=== PATIENT | male | born 1980 | race Caucasian/White ===

== ENCOUNTER 2020-03-01 18:15 | Emergency (ER) | payer MEDICAID ==
[~2020-03-01] VITALS: Ht 182.9 cm; Wt 80.5 kg
[2020-03-01 19:41] LABS: BASOPHILS % (AUTO) 0.6 % (0-1); EOSINOPHILS # (AUTO) 0.2 X10'3 (0-0.9); HEMATOCRIT 40.5 % (42.0-52.0); HEMOGLOBIN 13.2 g/dl (14.0-17.9); LYMPHOCYTES # (AUTO) 2.5 X10'3 (1.1-4.8); LYMPHOCYTES % (AUTO) 31.9 % (21-51); MEAN CORPUSCULAR HGB CONC 32.7 g/dL (33.0-36.5); MEAN CORPUSCULAR VOLUME 79.6 FL (78-98); MEAN PLATELET VOLUME 7.7 FL (7.4-10.4); MONOCYTES # (AUTO) 0.4 X10'3 (0-0.9); MONOCYTES % (AUTO) 4.9 % (2-12); NEUTROPHILS # (AUTO) 4.7 X10'3 (1.8-7.7); NEUTROPHILS % (AUTO) 60.6 % (42-75); PLATELET COUNT 285 X10'3 (140-440); RED BLOOD COUNT 5.09 X10'6 (4.70-6.10); RED CELL DISTRIBUTION WIDTH 13.3 % (11.5-14.5); WHITE BLOOD COUNT 7.8 X10'3 (4.5-11.0)
[2020-03-01 19:45] LABS: CLARITY,URINE CLEAR (Clear); COLOR,URINE YELLOW (Yellow); GLUCOSE, URINE 100 mg/dl (Neg); KETONES,URINE NEGATIVE (Neg); LEUKOCYTE ESTERASE ,URINE NEGATIVE (Neg); NITRITES, URINE NEGATIVE (Neg); OCCULT BLOOD,URINE NEGATIVE (Neg); PH,URINE 6.5 (4.8-8.0); PROTEIN,URINE TRACE mg/dl (Neg)
[2020-03-01 19:50] LABS: UA COLLECTION TYPE NON-SPECIFIED
[2020-03-01 19:52] LABS: BACTERIA,URINE NONE SEEN /HPF (Neg); COARSE GRANULAR CAST 0-3 /LPF (NEGATIVE); RBC,URINE 0-2 /HPF (0-2); SQUAMOUS EPITHELIAL CELL,UR FEW /LPF (FEW); WBC,URINE NONE SEEN /HPF (0-4)
[2020-03-01 19:54] LABS: ALANINE AMINOTRANSFERASE 77 U/L (12-78); ALBUMIN 3.2 G/DL (3.4-5.0); ALBUMIN/GLOBULIN RATIO 0.8 (1.1-1.5); ALKALINE PHOSPHATASE 87 IU/L (46-116); AMYLASE 54 U/L (25-115); ANION GAP 13 (8-16); ASPARTATE AMINO TRANSFERASE 54 U/L (10-37); BILIRUBIN,TOTAL 1.5 MG/DL (0.1-1.0); BLOOD UREA NITROGEN 17 MG/DL (7-18); BUN/CREATININE RATIO 13.6 (5.4-32.0); CALCIUM 8.2 MG/DL (8.5-10.1); CHLORIDE 102 MMOL/L (99-107); CREATININE 1.25 MG/DL (0.60-1.10); GLUCOSE 231 MG/DL (70-104); LIPASE 137 U/L (73-393); POTASSIUM 3.8 MMOL/L (3.5-5.1); SODIUM 139 MMOL/L (135-145); TOTAL CARBON DIOXIDE 24.5 MMOL/L (24-32); TOTAL PROTEIN 7.3 G/DL (6.4-8.2); eGFR 65 ML/MIN
[2020-03-01] MEDS ORDERED: ondansetron/PF 4mg/2ml inj IV ONE (20:10)
[2020-03-01] MEDS ORDERED: normal saline 1000ML IV soln IVB ONE ×2 (20:10→20:20)
[2020-03-01] MEDS ORDERED: ketorolac tromethamine 15mg/ml inj. IV ONE (20:20)
[2020-03-01] MEDS ORDERED: proCHLORperazine 10 MG/2 ml inj IV ONE (21:15)
[2020-03-01] MEDS ORDERED: morphine 4 MG/ML inj SYRINge IV PRN (21:15)
--- NOTE | 2020-03-01 22:10 | NUR ---
Pt given water per Dr Lyles's okay.
--- NOTE | 2020-03-01 22:28 | NUR ---
Pt tolerating oral fluids.
[2020-03-01] MEDS ORDERED: ONDA4TAB6 PO (22:42)
[2020-03-01 22:53] VITALS: BP 105/74
== END 2020-03-01 22:56 | disposition home or self-care (01) ==
LOC: ER 18:16
DX: R10.12 Left upper quadrant pain (principal); R11.2 Nausea with vomiting, unspecified; E11.9 Type 2 diabetes mellitus without complications; F17.200 Nicotine dependence, unspecified, uncomplicated; Z72.89 Other problems related to lifestyle; Z79.899 Other long term (current) drug therapy
CPT/HCPCS: 36415; 76700; 80053; 81001; 82150; 82948; 83690; 85025; 85610; 96361; 96374; 96375; 99285; J0780; J1885; J2270; J2405; J7030

== ENCOUNTER 2020-04-30 13:48 | Emergency (ER) | payer MEDICAID ==
[~2020-04-30] VITALS: Ht 175.3 cm; Wt 85.0 kg
[~2020-04-30 13:48] MED LIST: ONDA4TAB6 PO
[2020-04-30 14:50] LABS: BASOPHILS % (AUTO) 0.5 % (0-1); EOSINOPHILS # (AUTO) 0.1 X10'3 (0-0.9); EOSINOPHILS % (AUTO) 3.9 % (0-6); HEMATOCRIT 32.6 % (42.0-52.0); HEMOGLOBIN 10.5 g/dl (14.0-17.9); LYMPHOCYTES # (AUTO) 1.3 X10'3 (1.1-4.8); LYMPHOCYTES % (AUTO) 39.5 % (21-51); MEAN CORPUSCULAR HGB CONC 32.2 g/dL (33.0-36.5); MEAN CORPUSCULAR VOLUME 80.9 FL (78-98); MEAN PLATELET VOLUME 6.8 FL (7.4-10.4); MONOCYTES # (AUTO) 0.5 X10'3 (0-0.9); MONOCYTES % (AUTO) 14.3 % (2-12); NEUTROPHILS # (AUTO) 1.4 X10'3 (1.8-7.7); NEUTROPHILS % (AUTO) 41.8 % (42-75); PLATELET COUNT 130 X10'3 (140-440); RED BLOOD COUNT 4.03 X10'6 (4.70-6.10); RED CELL DISTRIBUTION WIDTH 13.7 % (11.5-14.5); WHITE BLOOD COUNT 3.4 X10'3 (4.5-11.0)
--- NOTE | 2020-04-30 14:52 | NUR ---
DR NEWTON IN TO ASSESS PATIENT AT THIS TIME. MADE AWARE BG 63 AFTER GIVEN APPLE JUICE, MD STATES TO GIVE PATIENT SANDWICH.
[2020-04-30 14:56] LABS: CLARITY,URINE CLEAR (Clear); COLOR,URINE YELLOW (Yellow); GLUCOSE, URINE NEGATIVE (Neg); KETONES,URINE NEGATIVE (Neg); LEUKOCYTE ESTERASE ,URINE NEGATIVE (Neg); NITRITES, URINE NEGATIVE (Neg); OCCULT BLOOD,URINE NEGATIVE (Neg); PH,URINE 7.5 (4.8-8.0); PROTEIN,URINE TRACE mg/dl (Neg)
[2020-04-30 14:57] LABS: UA COLLECTION TYPE VOIDED
[2020-04-30 15:06] LABS: ALANINE AMINOTRANSFERASE 73 U/L (12-78); ALBUMIN 2.8 G/DL (3.4-5.0); ALBUMIN/GLOBULIN RATIO 0.7 (1.1-1.5); ALKALINE PHOSPHATASE 109 IU/L (46-116); ANION GAP 7 (8-16); ASPARTATE AMINO TRANSFERASE 96 U/L (10-37); BILIRUBIN,TOTAL 0.2 MG/DL (0.1-1.0); BLOOD UREA NITROGEN 9 MG/DL (7-18); BUN/CREATININE RATIO 8.1 (5.4-32.0); CALCIUM 8.4 MG/DL (8.5-10.1); CHLORIDE 104 MMOL/L (99-107); CREATININE 1.11 MG/DL (0.60-1.10); GLUCOSE 68 MG/DL (70-104); POTASSIUM 4.4 MMOL/L (3.5-5.1); SODIUM 139 MMOL/L (135-145); TOTAL CARBON DIOXIDE 28.5 MMOL/L (24-32); TOTAL PROTEIN 6.9 G/DL (6.4-8.2); eGFR 74 ML/MIN
[2020-04-30 15:09] LABS: ETHANOL < 0.010 GM/DL (0.0-0.010); LIPASE < 50 U/L (73-393)
[2020-04-30 15:14] LABS: BACTERIA,URINE NONE SEEN /HPF (Neg); MUCUS STRANDS NONE SEEN /LPF (Neg); RBC,URINE NONE SEEN /HPF (0-2); SPERM FEW /HPF (NEGATIVE); SQUAMOUS EPITHELIAL CELL,UR NONE SEEN /LPF (FEW); WBC,URINE 0-4 /HPF (0-4)
[2020-04-30 18:35] VITALS: BP 104/73
== END 2020-04-30 18:35 | disposition home or self-care (01) ==
LOC: ER 13:48
DX: E11.649 Type 2 diabetes mellitus with hypoglycemia without coma (principal); F17.200 Nicotine dependence, unspecified, uncomplicated; Z72.89 Other problems related to lifestyle; Z79.899 Other long term (current) drug therapy
CPT/HCPCS: 36415; 80053; 80320; 81001; 82948; 83690; 85025; 93005; 99284

== ENCOUNTER 2021-04-22 20:00 | Emergency (ER) | payer MEDICAID ==
[~2021-04-22] VITALS: Ht 182.9 cm; Wt 81.0 kg
[2021-04-22 22:02] LABS: LYMPHOCYTES # (AUTO) 2.4 X10'3 (1.1-4.8); MEAN PLATELET VOLUME 7.5 FL (7.4-10.4); MONOCYTES # (AUTO) 0.3 X10'3 (0-0.9); RED CELL DISTRIBUTION WIDTH 14.9 % (11.5-14.5)
[2021-04-22 22:04] LABS: BASOPHILS % (AUTO) 0.5 % (0-1); EOSINOPHILS % (AUTO) 0.5 % (0-6); HEMATOCRIT 38.1 % (42.0-52.0); HEMOGLOBIN 12.3 g/dl (14.0-17.9); LYMPHOCYTES % (AUTO) 57.3 % (21-51); MEAN CORPUSCULAR HEMOGLOBIN 26.8 PG (27.0-31.0); MEAN CORPUSCULAR HGB CONC 32.3 g/dL (33.0-36.5); MONOCYTES % (AUTO) 7.5 % (2-12); NEUTROPHILS # (AUTO) 1.4 X10'3 (1.8-7.7); NEUTROPHILS % (AUTO) 34.2 % (42-75); PLATELET COUNT 146 X10'3 (140-440); RED BLOOD COUNT 4.59 X10'6 (4.70-6.10); WHITE BLOOD COUNT 4.2 X10'3 (4.5-11.0)
[2021-04-22 22:13] LABS: ALANINE AMINOTRANSFERASE 111 U/L (12-78); ALBUMIN 2.9 G/DL (3.4-5.0); ALBUMIN/GLOBULIN RATIO 0.6 (1.1-1.5); ALKALINE PHOSPHATASE 265 IU/L (46-116); ANION GAP 7 (8-16); ASPARTATE AMINO TRANSFERASE 154 U/L (10-37); BILIRUBIN,TOTAL 1.3 MG/DL (0.1-1.0); BLOOD UREA NITROGEN 11 MG/DL (7-18); BUN/CREATININE RATIO 8.9 (5.4-32.0); CALCIUM 7.8 MG/DL (8.5-10.1); CHLORIDE 97 MMOL/L (99-107); CREATININE 1.24 MG/DL (0.60-1.10); GLUCOSE 272 MG/DL (70-104); LIPASE < 50 U/L (73-393); POTASSIUM 3.8 MMOL/L (3.5-5.1); SODIUM 135 MMOL/L (135-145); TOTAL CARBON DIOXIDE 31.5 MMOL/L (24-32); TOTAL PROTEIN 7.7 G/DL (6.4-8.2); eGFR 65 ML/MIN
[2021-04-22] MEDS ORDERED: iohexol 300mg/ml 100ml inj. ONE (22:47)
[2021-04-22] MEDS ORDERED: morphine 4 MG/ML inj SYRINge IV ONE (23:10)
--- NOTE | 2021-04-22 23:28 | NUR ---
Patient resting in stretcher, calm and cooperative. Even and unlabored respirations.
[2021-04-23] MEDS ORDERED: LIDOcaine Viscous 15ml cup MM ONE (00:35)
[2021-04-23] MEDS ORDERED: diphenhydrAMINE 25 MG/10 ML UD oral solution PO ONE (00:35)
[2021-04-23] MEDS ORDERED: mag hydrox/Alum hydrox/simeth 30ml oral suspension PO ONE (00:35)
[2021-04-23] MEDS ORDERED: ondansetron/PF 4mg/2ml inj IV ONE (01:05)
--- NOTE | 2021-04-23 01:40 | NUR ---
Patient provided with ice chips for PO challenge
[2021-04-23] MEDS ORDERED: ONDA4TAB12 PO (02:14)
[2021-04-23 02:37] VITALS: BP 132/90
== END 2021-04-23 02:22 | disposition home or self-care (01) ==
LOC: ER 20:01
DX: K29.00 Acute gastritis without bleeding (principal); R74.01 Elevation of levels of liver transaminase levels; R10.13 Epigastric pain; R11.0 Nausea; E11.9 Type 2 diabetes mellitus without complications; Z72.89 Other problems related to lifestyle; Z79.899 Other long term (current) drug therapy
CPT/HCPCS: 36415; 74177; 80053; 83690; 85025; 96374; 96375; 99285; J2270; J2405; Q0163; Q9967

== ENCOUNTER 2021-04-23 03:18 | Emergency (ER) | payer MEDICAID ==
[~2021-04-23] VITALS: Ht 182.9 cm; Wt 81.8 kg
[~2021-04-23 03:18] MED LIST changes: +ONDA4TAB12 PO
[2021-04-23 03:39] VITALS: BP 133/91
[2021-04-23] MEDS ORDERED: diphenhydrAMINE 50 mg/ml inj IM ONE (05:35)
[2021-04-23] MEDS ORDERED: haloperidol lactate 5mg/ml inj IM ONE (05:35)
== END 2021-04-23 07:24 | disposition home or self-care (01) ==
LOC: ER 03:19
DX: K29.70 Gastritis, unspecified, without bleeding (principal); R11.2 Nausea with vomiting, unspecified; R10.13 Epigastric pain; E11.9 Type 2 diabetes mellitus without complications; F17.200 Nicotine dependence, unspecified, uncomplicated; Z72.89 Other problems related to lifestyle; Z79.899 Other long term (current) drug therapy
CPT/HCPCS: 76700; 96372; 99284; J1200; J1630

== ENCOUNTER 2021-04-25 17:42 | Emergency (ER) | payer MEDICAID ==
[~2021-04-25] VITALS: Ht 182.9 cm; Wt 81.8 kg
[2021-04-25] MEDS ORDERED: ondansetron/PF 4mg/2ml inj IV ONE (17:50)
[2021-04-25] MEDS ORDERED: normal saline 1000ML IV soln IVB ONE (17:50)
[2021-04-25 17:53] VITALS: BP 121/89
[2021-04-25] MEDS ORDERED: famotidine/PF 10 mg/ml inj IV ONE (17:55)
[2021-04-25] MEDS ORDERED: proCHLORperazine 10 MG/2 ml inj IV ONE (17:55)
[2021-04-25] MEDS ORDERED: sucralfate 1gm/10ml UD suspension PO STA (18:23)
[2021-04-25] MEDS ORDERED: mag hydrox/Alum hydrox/simeth 30ml oral suspension PO ONE (18:25)
[2021-04-25] MEDS ORDERED: LIDOcaine Viscous 15ml cup MM ONE (18:25)
[2021-04-25 18:30] LABS: PLATELET COUNT 82 X10'3 (140-440)
[2021-04-25 18:32] LABS: HEMATOCRIT 34.3 % (42.0-52.0); HEMOGLOBIN 11.3 g/dl (14.0-17.9); MEAN CORPUSCULAR HEMOGLOBIN 27.3 PG (27.0-31.0); MEAN CORPUSCULAR HGB CONC 33.1 g/dL (33.0-36.5); MEAN CORPUSCULAR VOLUME 82.4 FL (78-98); MEAN PLATELET VOLUME 7.7 FL (7.4-10.4); RED BLOOD COUNT 4.16 X10'6 (4.70-6.10); WHITE BLOOD COUNT 6.7 X10'3 (4.5-11.0)
[2021-04-25 18:33] LABS: ALANINE AMINOTRANSFERASE 116 U/L (12-78); ALBUMIN 2.6 G/DL (3.4-5.0); ALBUMIN/GLOBULIN RATIO 0.6 (1.1-1.5); ALKALINE PHOSPHATASE 278 IU/L (46-116); ANION GAP 9 (8-16); ASPARTATE AMINO TRANSFERASE 132 U/L (10-37); BILIRUBIN,TOTAL 1.3 MG/DL (0.1-1.0); BLOOD UREA NITROGEN 12 MG/DL (7-18); BUN/CREATININE RATIO 12.2 (5.4-32.0); CALCIUM 7.8 MG/DL (8.5-10.1); CHLORIDE 100 MMOL/L (99-107); CREATININE 0.98 MG/DL (0.60-1.10); ETHANOL 0.298 GM/DL (0.0-0.010); GLUCOSE 147 MG/DL (70-104); LIPASE < 50 U/L (73-393); POTASSIUM 3.5 MMOL/L (3.5-5.1); SODIUM 136 MMOL/L (135-145); TOTAL CARBON DIOXIDE 26.9 MMOL/L (24-32); TOTAL PROTEIN 7.1 G/DL (6.4-8.2); eGFR 85 ML/MIN
[2021-04-25] MEDS ORDERED: ketorolac trometh. 30mg/ml inj. IV ONE (18:40)
[2021-04-25] MEDS ORDERED: ONDA4TAB6 PO (18:42)
[2021-04-25] MEDS ORDERED: PANT-47 PO (18:42)
[2021-04-25] MEDS ORDERED: metoclopramide 5 mg/ml inj IV ONE (18:45)
[2021-04-25 19:44] LABS: PLATELET ESTIMATE DECREASED
[2021-04-25 19:45] LABS: BANDS% (MANUAL) 3 % (0-10); EOSINOPHILS % (MANUAL) 1 % (0-6); LYMPHOCYTES % (MANUAL) 28 % (21-51); MONOCYTES % (MANUAL) 1 % (2-12); NEUTROPHILS % (MANUAL) 67 % (42-75); SMUDGE CELLS 1+; TOTAL CELLS COUNTED 100
== END 2021-04-25 20:43 | disposition home or self-care (01) ==
LOC: ER 17:43
DX: F10.129 Alcohol abuse with intoxication, unspecified (principal); K29.20 Alcoholic gastritis without bleeding; R10.11 Right upper quadrant pain; R11.10 Vomiting, unspecified; E11.9 Type 2 diabetes mellitus without complications; Z72.89 Other problems related to lifestyle; Z79.899 Other long term (current) drug therapy; Y90.9 Presence of alcohol in blood, level not specified
CPT/HCPCS: 36415; 80053; 80320; 83690; 85007; 85025; 93005; 96361; 96374; 96375; 99284; J0780; J1885; J2405; J2765; J3490; J7030